=== PATIENT | female | born 1945 | race Caucasian/White ===

== ENCOUNTER 2022-06-20 04:17 | Inpatient (IN) ==
[2022-06-20 05:15] LABS: Basophils % 0.2 %; Hematocrit 47.8 % (35.3-44.9); Hemoglobin 15.9 g/dL (11.5-15.4); Immature Granulocytes % 0.5 % (0-4); Lymphocytes # 0.8 K/mcL (0.6-4.6); Lymphocytes % 4.4 %; Mean Corpuscular HGB Conc 33.3 g/dL (31.6-35.5); Mean Corpuscular Hemoglobin 31.5 pg (28.0-33.3); Mean Corpuscular Volume 94.8 fL (83.0-100.0); Mean Platelet Volume 9.5 fL (9.4-12.4); Monocytes # 0.7 K/mcL (0.0-1.3); Monocytes % 3.5 %; Neutrophils # 17.3 K/mcL (1.6-8.9); Platelet Count 280 K/mcL (140-400); Red Blood Count 5.04 M/mcL (3.82-4.97); Red Cell Distribution Width 11.8 % (11.5-14.5); Segmented Neutrophils % 91.4 %
[2022-06-20 05:35] LABS: Albumin 4.9 g/dL (3.5-5.7); Albumin/Globulin Ratio 1.6 (1.1-2.2); Bilirubin,Direct 0.1 mg/dL (0.0-0.2); Bilirubin,Indirect 0.5 mg/dL (0.0-1.0); Bilirubin,Total 0.6 mg/dL (0.3-1.0); Calcium 10.9 mg/dL (8.6-10.3); Total Protein 7.9 g/dL (6.4-8.9)
[2022-06-20] MEDS ORDERED: Ondansetron 4 MG/2 ML VIAL IVP ONE (05:42)
[2022-06-20] MEDS ORDERED: Iopamidol - 370 500 ML MLS IVP ONE (05:42)
[2022-06-20] MEDS ORDERED: 0.9 % Sodium Chloride 1,000 ML IVC ONE (05:42)
[2022-06-20] MEDS ORDERED: *HR* FentaNYL (PF) 100 MCG/2 ML VIAL IVP ONE (05:42)
[2022-06-20 07:29] LABS: Bacteria,Urine Few per hpf (None-Few); Bilirubin,Urine Negative (Negative); Blood,Urine Negative (Negative); Clarity,Urine Clear (Clear); Color,Urine Colorless (Yellow); Glucose,Urine (UA) >=1000 mg/dL (Normal); Ketones,Urine 80 mg/dL (Negative); Leukocyte Esterase,Urine Negative (Negative); Mucus,Urine Few per lpf (None-Few); Nitrite,Urine Negative (Negative); PH,Urine 6.5 pH Units (5.0-8.0); Protein,Urine 30 mg/dL (Neg-Trace); RBC,Urine 0-3 per hpf (0-3); Specific Gravity,Urine > 1.030 (1.010-1.025); Squamous Epithelial Cell,Urine Few per hpf (None-Few); Urobilinogen,Urine Normal (Normal); WBC,Urine 0-3 per hpf (0-3)
[2022-06-20] MEDS ORDERED: Naloxone 0.4 MG/ML INJ IVP PRN (07:49)
[2022-06-20] MEDS ORDERED: Morphine Sulfate 2 MG/ML SYRINGE IVP PRN (08:10)
[2022-06-20] MEDS: 0.9 % Sodium Chloride 1,000 ML IVC SCH ×2 (10:43→20:55)
[2022-06-20] MEDS: cefTRIAXone 1,000 MG in 0.9 % Sodium Chloride 10 ML IVP SCH (10:44)
[2022-06-20] MEDS: *HR* Heparin 5,000 UNIT/ML VIAL SQ SCH ×2 (14:04→21:03)
[2022-06-20] MEDS: Ondansetron 4 MG/2 ML VIAL IVP PRN (17:36)
[2022-06-20] MEDS: Pantoprazole 40 MG VIAL IVP SCH (17:37)
[2022-06-21 03:38] LABS: Basophils % 0.1 %; Hematocrit 40.8 % (35.3-44.9); Immature Granulocytes % 0.1 % (0-4); Lymphocytes % 9.5 %; Mean Corpuscular HGB Conc 32.4 g/dL (31.6-35.5); Mean Corpuscular Hemoglobin 31.7 pg (28.0-33.3); Mean Corpuscular Volume 98.1 fL (83.0-100.0); Mean Platelet Volume 9.9 fL (9.4-12.4); Monocytes # 0.8 K/mcL (0.0-1.3); Neutrophils # 8.5 K/mcL (1.6-8.9); Platelet Count 242 K/mcL (140-400); Red Blood Count 4.16 M/mcL (3.82-4.97); Red Cell Distribution Width 12.1 % (11.5-14.5); Segmented Neutrophils % 82.3 %; White Blood Count 10.3 K/mcL (4.3-11.1)
[2022-06-21 03:47] LABS: Hemoglobin 13.2 g/dL (11.5-15.4)
[2022-06-21 04:08] LABS: Alanine Aminotransferase 19 Units/L (7-52); Albumin 3.8 g/dL (3.5-5.7); Albumin/Globulin Ratio 1.5 (1.1-2.2); Alkaline Phosphatase 39 Units/L (34-104); Aspartate Amino Transferase 21 Units/L (13-39); BUN/Creatinine Ratio 44 (6-26); Bilirubin,Total 0.5 mg/dL (0.3-1.0); Blood Urea Nitrogen 29 mg/dL (8-23); Calcium 8.7 mg/dL (8.6-10.3); Carbon Dioxide 28 mEq/L (23-29); Chloride 108 mEq/L (98-107); Globulin 2.5 g/dL (2.4-3.5); Glucose 145 mg/dL (70-105); Magnesium 2.2 mg/dL (1.6-2.6); Osmolality,Calculated 302 (280-300); Sodium 142 mEq/L (136-145); Total Protein 6.3 g/dL (6.4-8.9)
[2022-06-21] MEDS: *HR* Heparin 5,000 UNIT/ML VIAL SQ SCH ×3 (05:24→20:44)
[2022-06-21] MEDS: Pantoprazole 40 MG VIAL IVP SCH ×2 (05:24→16:37)
[2022-06-21] MEDS: Ondansetron 4 MG/2 ML VIAL IVP PRN ×2 (08:20→15:56)
[2022-06-21] MEDS: cefTRIAXone 1,000 MG in 0.9 % Sodium Chloride 10 ML IVP SCH (08:21)
[2022-06-21] MEDS: 0.9 % Sodium Chloride 1,000 ML IVC SCH (11:38)
[2022-06-21] MEDS ORDERED: *HR* LORazepam 2 MG/ML VIAL IVP ONE (16:21)
[2022-06-22] MEDS: 0.9 % Sodium Chloride 1,000 ML IVC SCH (00:57)
[2022-06-22] MEDS: Ondansetron 4 MG/2 ML VIAL IVP PRN ×3 (01:01→17:34)
[2022-06-22 02:32] LABS: Basophils % 0.3 %; Eosinophils # 0.1 K/mcL (0.0-0.6); Eosinophils % 0.6 %; Hematocrit 36.5 % (35.3-44.9); Immature Granulocytes % 0.2 % (0-4); Lymphocytes # 1.4 K/mcL (0.6-4.6); Mean Corpuscular HGB Conc 32.9 g/dL (31.6-35.5); Mean Corpuscular Hemoglobin 31.6 pg (28.0-33.3); Mean Corpuscular Volume 96.1 fL (83.0-100.0); Mean Platelet Volume 9.8 fL (9.4-12.4); Monocytes # 0.8 K/mcL (0.0-1.3); Neutrophils # 7.4 K/mcL (1.6-8.9); Platelet Count 229 K/mcL (140-400); Segmented Neutrophils % 76.9 %; White Blood Count 9.7 K/mcL (4.3-11.1)
[2022-06-22 02:51] LABS: BUN/Creatinine Ratio 49 (6-26); Blood Urea Nitrogen 27 mg/dL (8-23); Calcium 8.4 mg/dL (8.6-10.3); Carbon Dioxide 24 mEq/L (23-29); Chloride 110 mEq/L (98-107); Glucose 102 mg/dL (70-105); Magnesium 2.1 mg/dL (1.6-2.6); Osmolality,Calculated 299 (280-300); Phosphorous 1.5 mg/dL (2.7-4.5); Potassium 3.6 mEq/L (3.5-5.1); Sodium 142 mEq/L (136-145)
[2022-06-22] MEDS: *HR* Heparin 5,000 UNIT/ML VIAL SQ SCH ×3 (05:29→20:20)
[2022-06-22] MEDS: Pantoprazole 40 MG VIAL IVP SCH ×2 (05:43→17:30)
[2022-06-22] MEDS ORDERED: *HR* Labetalol 20 MG/4 ML SYRINGE IVP PRN (08:17)
[2022-06-22] MEDS ORDERED: *HR* LORazepam 2 MG/ML VIAL IVP ONE (11:51)
[2022-06-22] MEDS: Saliva Stimulant 44.3ml BOTTLE PO PRN ×2 (20:21→22:35)
[2022-06-23] MEDS: Saliva Stimulant 44.3ml BOTTLE PO PRN ×2 (00:58→04:12)
[2022-06-23 01:51] LABS: BUN/Creatinine Ratio 45 (6-26); Blood Urea Nitrogen 27 mg/dL (8-23); Carbon Dioxide 25 mEq/L (23-29); Chloride 112 mEq/L (98-107); Glucose 134 mg/dL (70-105); Osmolality,Calculated 311 (280-300); Phosphorous 2.3 mg/dL (2.7-4.5); Potassium 3.3 mEq/L (3.5-5.1); Sodium 147 mEq/L (136-145)
[2022-06-23] MEDS: *HR* Heparin 5,000 UNIT/ML VIAL SQ SCH ×2 (05:35→23:36)
[2022-06-23] MEDS: Pantoprazole 40 MG VIAL IVP SCH ×2 (05:35→17:10)
[2022-06-23] MEDS ORDERED: *HR* Propofol 200 MG/20 ML VIAL IVP ONE (07:24)
[2022-06-23] MEDS ORDERED: *HR* Succinylcholine 200 MG/10 ML VIAL IVP ONE (07:24)
[2022-06-23] MEDS ORDERED: Ondansetron 4 MG/2 ML VIAL ONE (07:24)
[2022-06-23] MEDS ORDERED: Lidocaine -MPF 2% 2 ML VIAL ONE (07:24)
[2022-06-23] MEDS ORDERED: *HR* FentaNYL (PF) 100 MCG/2 ML VIAL ONE ×2 (07:24→12:46)
[2022-06-23] MEDS ORDERED: Lidocaine HCL 4 ML Topical Solution (Laryng-O-Jet Kit Sterile Pak) TP ONE (07:24)
[2022-06-23] MEDS ORDERED: *HR* Rocuronium Bromide 50 MG/5 ML VIAL ONE (07:24)
[2022-06-23] MEDS ORDERED: Acetaminophen IV 1,000 MG/100 ML BAG IVPB ONE (10:59)
[2022-06-23] MEDS ORDERED: Clindamycin 900 MG/50 ML 900 MG/50 ML IV.SOLN IVPB ONE ×2 (12:11→12:33)
[2022-06-23] MEDS ORDERED: Sugammadex Sodium 200 MG/2 ML VIAL IV ONE (13:06)
[2022-06-23] MEDS: *HR* HYDROmorphone PF 0.5 MG/0.5 ML SYRINGE IVP PRN ×2 (14:12→14:26)
[2022-06-23] MEDS ORDERED: *HR* Labetalol 20 MG/4 ML SYRINGE IVP PRN (16:03)
[2022-06-23] MEDS ORDERED: Naloxone 0.4 MG/ML INJ IVP PRN (16:03)
[2022-06-23] MEDS ORDERED: Morphine PCA 30 MG/ 30 ML 30 ML PCA.VIAL IVC PRN (16:03)
[2022-06-23] MEDS ORDERED: Saliva Stimulant 44.3ml BOTTLE PO PRN (16:03)
[2022-06-23] MEDS: Acetaminophen IV 1,000 MG/100 ML BAG IVPB SCH ×2 (17:10→23:36)
[2022-06-23] MEDS: 0.9 % Sodium Chloride 1,000 ML IVC SCH (18:45)
[2022-06-24 01:48] LABS: Basophils % 0.2 %; Hemoglobin 11.7 g/dL (11.5-15.4); Immature Granulocytes % 0.4 % (0-4); Lymphocytes # 0.8 K/mcL (0.6-4.6); Lymphocytes % 7.1 %; Mean Corpuscular HGB Conc 32.5 g/dL (31.6-35.5); Mean Corpuscular Hemoglobin 31.5 pg (28.0-33.3); Mean Corpuscular Volume 96.8 fL (83.0-100.0); Mean Platelet Volume 9.5 fL (9.4-12.4); Monocytes # 0.8 K/mcL (0.0-1.3); Monocytes % 7.4 %; Neutrophils # 9.2 K/mcL (1.6-8.9); Platelet Count 232 K/mcL (140-400); Red Blood Count 3.72 M/mcL (3.82-4.97); Red Cell Distribution Width 12.1 % (11.5-14.5); Segmented Neutrophils % 84.9 %; White Blood Count 10.8 K/mcL (4.3-11.1)
[2022-06-24 02:03] LABS: BUN/Creatinine Ratio 50 (6-26); Blood Urea Nitrogen 29 mg/dL (8-23); Calcium 7.7 mg/dL (8.6-10.3); Carbon Dioxide 26 mEq/L (23-29); Chloride 117 mEq/L (98-107); Glucose 101 mg/dL (70-105); Osmolality,Calculated 316 (280-300); Potassium 3.3 mEq/L (3.5-5.1); Sodium 150 mEq/L (136-145)
[2022-06-24] MEDS: 0.9 % Sodium Chloride 1,000 ML IVC SCH ×3 (02:30→22:34)
[2022-06-24] MEDS ORDERED: *HR* HYDROmorphone (PF) 1 MG/ML SYRINGE IVP ONE (04:23)
[2022-06-24] MEDS: *HR* Heparin 5,000 UNIT/ML VIAL SQ SCH ×3 (05:18→21:39)
[2022-06-24] MEDS: Pantoprazole 40 MG VIAL IVP SCH ×2 (05:19→17:35)
[2022-06-24] MEDS: Acetaminophen IV 1,000 MG/100 ML BAG IVPB SCH ×3 (05:20→17:34)
[2022-06-24] MEDS: Chloraseptic Spray 177 ML BOTTLE MM PRN (05:20)
[2022-06-24] MEDS ORDERED: D10% in Water 500 ML IVC PRN ×2 (11:38→13:35)
[2022-06-24 13:13] LABS: Magnesium 2.3 mg/dL (1.6-2.6); Phosphorous 1.4 mg/dL (2.7-4.5)
[2022-06-24] MEDS ORDERED: Potassium Phosphate 44 MEQ in 0.9 % Sodium Chloride 250 ML IVPB ONE (13:45)
[2022-06-24] MEDS ORDERED: Lidocaine -MPF 1% 5 ML AMPUL INFILT ONE (15:29)
[2022-06-24] MEDS ORDERED: Clinimix E 5%-15% SOLUTION 2,000 ML with MVI, adult with vitamin K 10 ML IVC SCH (17:00)
[2022-06-24] MEDS: Morphine Sulfate 2 MG/ML SYRINGE IVP PRN (21:39)
[2022-06-25] MEDS: Morphine Sulfate 2 MG/ML SYRINGE IVP PRN ×2 (00:12→05:42)
[2022-06-25] MEDS: *HR* Heparin 5,000 UNIT/ML VIAL SQ SCH ×3 (05:17→22:12)
[2022-06-25] MEDS: Pantoprazole 40 MG VIAL IVP SCH ×2 (05:18→17:12)
[2022-06-25] MEDS: 0.9 % Sodium Chloride 1,000 ML IVC SCH ×3 (05:32→22:16)
[2022-06-25 05:48] LABS: Alanine Aminotransferase 25 Units/L (7-52); Albumin 3.1 g/dL (3.5-5.7); Albumin/Globulin Ratio 1.6 (1.1-2.2); Alkaline Phosphatase 33 Units/L (34-104); Aspartate Amino Transferase 31 Units/L (13-39); BUN/Creatinine Ratio 35 (6-26); Bilirubin,Total 0.4 mg/dL (0.3-1.0); Blood Urea Nitrogen 19 mg/dL (8-23); Calcium 7.7 mg/dL (8.6-10.3); Carbon Dioxide 26 mEq/L (23-29); Chloride 115 mEq/L (98-107); Glucose 487 mg/dL (70-105); Magnesium 2.4 mg/dL (1.6-2.6); Osmolality,Calculated 328 (280-300); Phosphorous 3.1 mg/dL (2.7-4.5); Potassium 4.2 mEq/L (3.5-5.1); Sodium 147 mEq/L (136-145); Total Protein 5.1 g/dL (6.4-8.9); Triglycerides 129 mg/dL (< 150)
[2022-06-25 06:01] LABS: Basophils % 0.4 %; Eosinophils # 0.1 K/mcL (0.0-0.6); Eosinophils % 0.8 %; Hematocrit 35.7 % (35.3-44.9); Hemoglobin 11.3 g/dL (11.5-15.4); Immature Granulocytes % 0.7 % (0-4); Lymphocytes % 9.1 %; Mean Corpuscular HGB Conc 31.7 g/dL (31.6-35.5); Mean Corpuscular Hemoglobin 31.4 pg (28.0-33.3); Mean Corpuscular Volume 99.2 fL (83.0-100.0); Mean Platelet Volume 9.9 fL (9.4-12.4); Monocytes # 0.6 K/mcL (0.0-1.3); Monocytes % 5.9 %; Platelet Count 230 K/mcL (140-400); Red Cell Distribution Width 12.6 % (11.5-14.5); Segmented Neutrophils % 83.1 %; White Blood Count 10.8 K/mcL (4.3-11.1)
[2022-06-25] MEDS: Acetaminophen IV 1,000 MG/100 ML BAG IVPB SCH ×4 (06:14→17:10)
[2022-06-25] MEDS ORDERED: *HR* Dextrose 50 % in Water (Syg) 50 ML SYRINGE IVP PRN (08:07)
[2022-06-25] MEDS ORDERED: Dextrose Gel 15 GM/37.5 ML TUBE PO PRN ×2 (08:07)
[2022-06-25] MEDS ORDERED: D5% in Water 1,000 ML IVC PRN (08:07)
[2022-06-25 10:32] LABS: Estimated Average Glucose 120 mg/dl; Hemoglobin A1C 5.8 %
[2022-06-25] MEDS ORDERED: Insulin LISPRO 300 UNITS/3 ML VIAL SUBQ SCH (12:00)
[2022-06-25] MEDS: Carbidopa/Levodopa 25/100 TABLET PO SCH ×2 (14:19→22:12)
[2022-06-25] MEDS: Venlafaxine XR (24 HR) 150 MG CAP.ER.24H PO SCH (14:19)
[2022-06-25] MEDS ORDERED: Clinimix E 5%-15% SOLUTION 2,000 ML with MVI, adult with vitamin K 10 ML IVC SCH (17:00)
[2022-06-25] MEDS ORDERED: *HR* Metoprolol 5 MG/5 ML VIAL IVP PRN (17:06)
[2022-06-25] MEDS: Insulin LISPRO 300 UNITS/3 ML VIAL SUBQ SCH ×2 (17:10→22:13)
[2022-06-25] MEDS: Fat Emulsion 250 ML IVPB SCH (17:12)
[2022-06-25] MEDS: Ondansetron 4 MG/2 ML VIAL IVP PRN (18:15)
[2022-06-26] MEDS: Acetaminophen IV 1,000 MG/100 ML BAG IVPB SCH ×4 (00:54→18:20)
[2022-06-26] MEDS: Insulin LISPRO 300 UNITS/3 ML VIAL SUBQ SCH ×6 (00:57→22:13)
[2022-06-26] MEDS: 0.9 % Sodium Chloride 1,000 ML IVC SCH ×2 (04:59→09:43)
[2022-06-26] MEDS: *HR* Heparin 5,000 UNIT/ML VIAL SQ SCH ×2 (05:01→15:00)
[2022-06-26] MEDS: Pantoprazole 40 MG VIAL IVP SCH ×2 (05:02→18:19)
[2022-06-26] MEDS: Carbidopa/Levodopa 25/100 TABLET PO SCH ×3 (09:35→20:53)
[2022-06-26] MEDS: Venlafaxine XR (24 HR) 150 MG CAP.ER.24H PO SCH (09:36)
[2022-06-26] MEDS: Ondansetron 4 MG/2 ML VIAL IVP PRN (12:18)
[2022-06-26 15:21] LABS: Basophils % 0.3 %; Eosinophils # 0.1 K/mcL (0.0-0.6); Hematocrit 37.3 % (35.3-44.9); Lymphocytes # 0.9 K/mcL (0.6-4.6); Mean Corpuscular HGB Conc 32.2 g/dL (31.6-35.5); Mean Corpuscular Hemoglobin 31.3 pg (28.0-33.3); Mean Corpuscular Volume 97.4 fL (83.0-100.0); Mean Platelet Volume 9.8 fL (9.4-12.4); Monocytes # 0.6 K/mcL (0.0-1.3); Monocytes % 7.6 %; Neutrophils # 6.1 K/mcL (1.6-8.9); Platelet Count 256 K/mcL (140-400); Red Blood Count 3.83 M/mcL (3.82-4.97); Red Cell Distribution Width 12.7 % (11.5-14.5); Segmented Neutrophils % 78.1 %; White Blood Count 7.9 K/mcL (4.3-11.1)
[2022-06-26 15:34] LABS: Alanine Aminotransferase 16 Units/L (7-52); Albumin/Globulin Ratio 1.6 (1.1-2.2); Alkaline Phosphatase 52 Units/L (34-104); Aspartate Amino Transferase 43 Units/L (13-39); BUN/Creatinine Ratio 44 (6-26); Bilirubin,Total 0.4 mg/dL (0.3-1.0); Blood Urea Nitrogen 21 mg/dL (8-23); Calcium 7.8 mg/dL (8.6-10.3); Carbon Dioxide 25 mEq/L (23-29); Chloride 116 mEq/L (98-107); Globulin 1.9 g/dL (2.4-3.5); Glucose 156 mg/dL (70-105); Magnesium 2.2 mg/dL (1.6-2.6); Osmolality,Calculated 308 (280-300); Phosphorous 1.6 mg/dL (2.7-4.5); Potassium 3.4 mEq/L (3.5-5.1); Sodium 146 mEq/L (136-145); Total Protein 4.9 g/dL (6.4-8.9)
[2022-06-26] MEDS: Fat Emulsion 250 ML IVPB SCH (17:53)
[2022-06-27] MEDS: *HR* OxyCODONE Immed Rel 5 MG TABLET PO PRN (00:39)
[2022-06-27] MEDS: Acetaminophen IV 1,000 MG/100 ML BAG IVPB SCH ×4 (00:39→17:41)
[2022-06-27] MEDS: *HR* Heparin 5,000 UNIT/ML VIAL SQ SCH ×4 (00:40→20:29)
[2022-06-27] MEDS: Insulin LISPRO 300 UNITS/3 ML VIAL SUBQ SCH ×3 (00:44→08:07)
[2022-06-27] MEDS: Pantoprazole 40 MG VIAL IVP SCH ×2 (06:55→18:32)
[2022-06-27 10:02] LABS: BUN/Creatinine Ratio 40 (6-26); Blood Urea Nitrogen 24 mg/dL (8-23); Calcium 8.2 mg/dL (8.6-10.3); Carbon Dioxide 26 mEq/L (23-29); Chloride 114 mEq/L (98-107); Glucose 131 mg/dL (70-105); Magnesium 2.1 mg/dL (1.6-2.6); Osmolality,Calculated 308 (280-300); Phosphorous 2.2 mg/dL (2.7-4.5); Potassium 3.6 mEq/L (3.5-5.1); Sodium 146 mEq/L (136-145)
[2022-06-27] MEDS: Venlafaxine XR (24 HR) 150 MG CAP.ER.24H PO SCH (10:40)
[2022-06-27] MEDS: Carbidopa/Levodopa 25/100 TABLET PO SCH ×3 (10:41→19:41)
[2022-06-28] MEDS: Acetaminophen IV 1,000 MG/100 ML BAG IVPB SCH ×5 (00:04→16:52)
[2022-06-28] MEDS: Chloraseptic Spray 177 ML BOTTLE MM PRN (00:09)
[2022-06-28] MEDS: *HR* Metoprolol 5 MG/5 ML VIAL IVP PRN (02:31)
[2022-06-28 02:58] LABS: Basophils % 0.5 %; Eosinophils # 0.2 K/mcL (0.0-0.6); Eosinophils % 2.7 %; Hemoglobin 11.9 g/dL (11.5-15.4); Immature Granulocytes % 1.2 % (0-4); Lymphocytes # 1.6 K/mcL (0.6-4.6); Mean Corpuscular HGB Conc 32.2 g/dL (31.6-35.5); Mean Corpuscular Hemoglobin 31.2 pg (28.0-33.3); Mean Corpuscular Volume 96.9 fL (83.0-100.0); Mean Platelet Volume 9.7 fL (9.4-12.4); Monocytes # 0.6 K/mcL (0.0-1.3); Monocytes % 7.2 %; Neutrophils # 5.6 K/mcL (1.6-8.9); Nucleated Red Blood Cells 0.2 /100 WBC (0); Platelet Count 304 K/mcL (140-400); Red Blood Count 3.82 M/mcL (3.82-4.97); Red Cell Distribution Width 12.8 % (11.5-14.5); Segmented Neutrophils % 68.4 %; White Blood Count 8.1 K/mcL (4.3-11.1)
[2022-06-28 03:18] LABS: Alanine Aminotransferase 52 Units/L (7-52); Albumin 2.7 g/dL (3.5-5.7); Albumin/Globulin Ratio 1.3 (1.1-2.2); Alkaline Phosphatase 89 Units/L (34-104); Aspartate Amino Transferase 83 Units/L (13-39); BUN/Creatinine Ratio 44 (6-26); Bilirubin,Total 0.5 mg/dL (0.3-1.0); Blood Urea Nitrogen 24 mg/dL (8-23); Calcium 8.1 mg/dL (8.6-10.3); Carbon Dioxide 25 mEq/L (23-29); Chloride 113 mEq/L (98-107); Globulin 2.1 g/dL (2.4-3.5); Glucose 88 mg/dL (70-105); Osmolality,Calculated 301 (280-300); Phosphorous 2.7 mg/dL (2.7-4.5); Potassium 3.8 mEq/L (3.5-5.1); Sodium 144 mEq/L (136-145); Total Protein 4.8 g/dL (6.4-8.9)
[2022-06-28] MEDS: *HR* Heparin 5,000 UNIT/ML VIAL SQ SCH ×2 (05:03→14:43)
[2022-06-28] MEDS: Pantoprazole 40 MG VIAL IVP SCH ×2 (05:03→16:51)
[2022-06-28] MEDS: Carbidopa/Levodopa 25/100 TABLET PO SCH ×3 (08:38→23:40)
[2022-06-28] MEDS: Venlafaxine XR (24 HR) 150 MG CAP.ER.24H PO SCH (08:38)
[2022-06-29] MEDS: *HR* Heparin 5,000 UNIT/ML VIAL SQ SCH ×2 (01:53→17:06)
[2022-06-29] MEDS: Acetaminophen IV 1,000 MG/100 ML BAG IVPB SCH ×4 (01:54→17:06)
[2022-06-29] MEDS: Pantoprazole 40 MG VIAL IVP SCH (05:48)
[2022-06-29 07:28] LABS: Basophils # 0.1 K/mcL (0.0-0.2); Basophils % 0.4 %; Eosinophils # 0.1 K/mcL (0.0-0.6); Eosinophils % 0.6 %; Hemoglobin 12.7 g/dL (11.5-15.4); Immature Granulocytes % 0.7 % (0-4); Lymphocytes # 1.1 K/mcL (0.6-4.6); Lymphocytes % 4.8 %; Mean Corpuscular HGB Conc 32.6 g/dL (31.6-35.5); Mean Corpuscular Hemoglobin 31.3 pg (28.0-33.3); Mean Corpuscular Volume 96.1 fL (83.0-100.0); Mean Platelet Volume 9.8 fL (9.4-12.4); Monocytes # 0.9 K/mcL (0.0-1.3); Platelet Count 359 K/mcL (140-400); Red Blood Count 4.06 M/mcL (3.82-4.97); Segmented Neutrophils % 89.5 %
[2022-06-29 07:29] LABS: Neutrophils # 20.1 K/mcL (1.6-8.9); White Blood Count 22.5 K/mcL (4.3-11.1)
[2022-06-29 08:43] LABS: Alanine Aminotransferase 43 Units/L (7-52); Albumin/Globulin Ratio 1.5 (1.1-2.2); Alkaline Phosphatase 89 Units/L (34-104); Aspartate Amino Transferase 58 Units/L (13-39); BUN/Creatinine Ratio 45 (6-26); Bilirubin,Total 0.5 mg/dL (0.3-1.0); Blood Urea Nitrogen 25 mg/dL (8-23); Calcium 8.2 mg/dL (8.6-10.3); Carbon Dioxide 24 mEq/L (23-29); Chloride 109 mEq/L (98-107); Glucose 111 mg/dL (70-105); Magnesium 1.9 mg/dL (1.6-2.6); Osmolality,Calculated 297 (280-300); Phosphorous 3.3 mg/dL (2.7-4.5); Potassium 3.5 mEq/L (3.5-5.1); Sodium 141 mEq/L (136-145)
[2022-06-29 08:55] LABS: Bilirubin,Urine Negative (Negative); Blood,Urine Negative (Negative); Clarity,Urine Clear (Clear); Color,Urine Yellow (Yellow); Glucose,Urine (UA) Normal (Normal); Ketones,Urine 100 mg/dL (Negative); Leukocyte Esterase,Urine Negative (Negative); Mucus,Urine Moderate per lpf (None-Few); Nitrite,Urine Negative (Negative); Protein,Urine 70 mg/dL (Neg-Trace); RBC,Urine 0-3 per hpf (0-3); Specific Gravity,Urine > 1.030 (1.010-1.025); Squamous Epithelial Cell,Urine Few per hpf (None-Few); Urobilinogen,Urine Normal (Normal); WBC,Urine 0-3 per hpf (0-3)
[2022-06-29] MEDS: Venlafaxine XR (24 HR) 150 MG CAP.ER.24H PO SCH (09:02)
[2022-06-29] MEDS: Carbidopa/Levodopa 25/100 TABLET PO SCH ×3 (09:03→21:53)
[2022-06-29] MEDS: *HR* OxyCODONE Immed Rel 5 MG TABLET PO PRN (10:31)
[2022-06-29 11:00] LABS: Hematocrit 37.7 % (35.3-44.9); Hemoglobin 12.5 g/dL (11.5-15.4); Mean Corpuscular HGB Conc 33.2 g/dL (31.6-35.5); Mean Corpuscular Hemoglobin 31.6 pg (28.0-33.3); Mean Corpuscular Volume 95.4 fL (83.0-100.0); Mean Platelet Volume 9.4 fL (9.4-12.4); Platelet Count 337 K/mcL (140-400); Red Blood Count 3.95 M/mcL (3.82-4.97); Red Cell Distribution Width 12.9 % (11.5-14.5); White Blood Count 19.2 K/mcL (4.3-11.1)
[2022-06-29] MEDS: Ondansetron 4 MG/2 ML VIAL IVP PRN (17:57)
[2022-06-29] MEDS: *HR* Metoprolol 5 MG/5 ML VIAL IVP PRN (17:59)
[2022-06-30] MEDS: Acetaminophen IV 1,000 MG/100 ML BAG IVPB SCH ×4 (01:51→17:26)
[2022-06-30 03:28] LABS: Basophils % 0.2 %; Eosinophils # 0.2 K/mcL (0.0-0.6); Eosinophils % 1.2 %; Hematocrit 35.1 % (35.3-44.9); Hemoglobin 11.5 g/dL (11.5-15.4); Immature Granulocytes % 0.8 % (0-4); Lymphocytes # 1.7 K/mcL (0.6-4.6); Lymphocytes % 10.1 %; Mean Corpuscular HGB Conc 32.8 g/dL (31.6-35.5); Mean Corpuscular Hemoglobin 31.7 pg (28.0-33.3); Mean Corpuscular Volume 96.7 fL (83.0-100.0); Mean Platelet Volume 9.9 fL (9.4-12.4); Monocytes # 0.7 K/mcL (0.0-1.3); Monocytes % 4.5 %; Neutrophils # 13.7 K/mcL (1.6-8.9); Platelet Count 344 K/mcL (140-400); Red Blood Count 3.63 M/mcL (3.82-4.97); Red Cell Distribution Width 13.1 % (11.5-14.5); Segmented Neutrophils % 83.2 %; White Blood Count 16.4 K/mcL (4.3-11.1)
[2022-06-30 03:38] LABS: Alanine Aminotransferase 25 Units/L (7-52); Albumin 2.8 g/dL (3.5-5.7); Albumin/Globulin Ratio 1.3 (1.1-2.2); Alkaline Phosphatase 74 Units/L (34-104); Aspartate Amino Transferase 34 Units/L (13-39); BUN/Creatinine Ratio 38 (6-26); Bilirubin,Total 0.5 mg/dL (0.3-1.0); Blood Urea Nitrogen 21 mg/dL (8-23); Calcium 8.2 mg/dL (8.6-10.3); Carbon Dioxide 25 mEq/L (23-29); Chloride 109 mEq/L (98-107); Globulin 2.1 g/dL (2.4-3.5); Glucose 87 mg/dL (70-105); Osmolality,Calculated 294 (280-300); Potassium 3.6 mEq/L (3.5-5.1); Sodium 141 mEq/L (136-145); Total Protein 4.9 g/dL (6.4-8.9)
[2022-06-30] MEDS: *HR* Enoxaparin 80 MG/0.8 ML SYRINGE SQ SCH ×2 (07:10→17:26)
[2022-06-30] MEDS: Azithromycin 250 MG TABLET PO SCH (09:01)
[2022-06-30] MEDS: Carbidopa/Levodopa 25/100 TABLET PO SCH ×3 (09:01→21:17)
[2022-06-30] MEDS: Venlafaxine XR (24 HR) 150 MG CAP.ER.24H PO SCH (09:01)
[2022-06-30] MEDS: Cefepime HCl 2,000 MG in 0.9 % Sodium Chloride 10 ML IVP SCH (21:18)
[2022-07-01] MEDS: Acetaminophen IV 1,000 MG/100 ML BAG IVPB SCH (00:51)
[2022-07-01 03:16] LABS: Basophils % 0.2 %; Eosinophils # 0.1 K/mcL (0.0-0.6); Eosinophils % 1.1 %; Hematocrit 32.1 % (35.3-44.9); Hemoglobin 10.5 g/dL (11.5-15.4); Immature Granulocytes % 0.6 % (0-4); Lymphocytes # 1.6 K/mcL (0.6-4.6); Lymphocytes % 12.8 %; Mean Corpuscular HGB Conc 32.7 g/dL (31.6-35.5); Mean Corpuscular Hemoglobin 31.6 pg (28.0-33.3); Mean Corpuscular Volume 96.7 fL (83.0-100.0); Mean Platelet Volume 10.1 fL (9.4-12.4); Monocytes # 0.8 K/mcL (0.0-1.3); Monocytes % 6.2 %; Platelet Count 355 K/mcL (140-400); Red Blood Count 3.32 M/mcL (3.82-4.97); Red Cell Distribution Width 13.2 % (11.5-14.5); Segmented Neutrophils % 79.1 %; White Blood Count 12.6 K/mcL (4.3-11.1)
[2022-07-01] MEDS: Cefepime HCl 2,000 MG in 0.9 % Sodium Chloride 10 ML IVP SCH ×3 (03:56→20:36)
[2022-07-01] MEDS: Venlafaxine XR (24 HR) 150 MG CAP.ER.24H PO SCH (10:21)
[2022-07-01] MEDS: Carbidopa/Levodopa 25/100 TABLET PO SCH ×3 (10:22→20:37)
[2022-07-01] MEDS: Azithromycin 250 MG TABLET PO SCH (10:23)
[2022-07-01] MEDS: Apixaban 5 MG TABLET PO SCH (20:37)
[2022-07-01] MEDS: Furosemide 40 MG/4 ML VIAL IVP SCH (20:37)
[2022-07-01] MEDS: *HR* OxyCODONE Immed Rel 5 MG TABLET PO PRN (21:00)
[2022-07-02] MEDS: Cefepime HCl 2,000 MG in 0.9 % Sodium Chloride 10 ML IVP SCH ×2 (02:27→12:17)
[2022-07-02] MEDS: *HR* OxyCODONE Immed Rel 5 MG TABLET PO PRN ×2 (03:58→09:25)
[2022-07-02] MEDS: Azithromycin 250 MG TABLET PO SCH (09:23)
[2022-07-02] MEDS: Carbidopa/Levodopa 25/100 TABLET PO SCH ×2 (09:25→15:33)
[2022-07-02] MEDS: Apixaban 5 MG TABLET PO SCH (09:25)
[2022-07-02] MEDS: Venlafaxine XR (24 HR) 150 MG CAP.ER.24H PO SCH (09:25)
[2022-07-02] MEDS: Furosemide 40 MG/4 ML VIAL IVP SCH (09:26)
[2022-07-02 14:07] LABS: Influenza A PCR Negative (Negative); Influenza B PCR Negative (Negative); Resp. Syncytial Virus PCR Negative (Negative)
[2022-07-02 14:34] VITALS: BP 105/67; PULSE 75; TEMP 97.5; O2SAT 95
[2022-07-02 15:11] LABS: SARS-CoV-2 by PCR (In House) Negative (Negative)
== END 2022-07-02 19:37 | DRG 336 ==
LOC: 3BNU 04:17 → EMEROOARM 04:17 → OBSVTOIN 08:46 → SUATTDRO 08:46 → 3BNU 10:00 → 3ANU 06-23 13:19
PROVIDERS: ADMIT Hospitalist; ATTEND Family Medicine